=== PATIENT | female | born 1970 | race Caucasian/White ===

== ENCOUNTER 2019-06-23 00:30 | Day surgery (SDC) | payer BC, SELFPAY ==
[2019-06-15 13:22] VITALS: BMI 35.8
[2019-06-23] MEDS: LACTATED RINGERS 1,000 ML 150 ML IV CONT (07:10)
--- NOTE | 2019-06-23 07:22 | WPDANESEPPF ---
Anes - Initial Pre Proc Eval Procedure: Operation Date: 06/23/19 08:00 Proposed Procedures p Screening Colonoscopy - Raymond Hodgson MD Date/Time: 06/23/19 07:22 Surgeon: Raymond Hodgson MD Pre Op Diagnosis: neoplasm screening Patient Data Age: 49 Gender: F Height: 5 ft 8 in Weight: 106.8 kg Allergies Allergy/AdvReac Type Severity Reaction Status Date / Time No Known Allergies Allergy Verified 06/23/19 07:21 Home Medications Medication Instructions Recorded Confirmed Type ai-ew-YV-vit R-lhhia-xhl-coQ10 1 cap PO DAILY 06/15/19 06/15/19 History [Daily Multivitamin] olmesartan 20 mg PO DAILY 06/15/19 06/23/19 History Patient hx anesthesia problems: none Family hx anesthesia problems: none PMFSH Past Medical History Medical History (Updated 06/23/19 @ 07:19 by Vipul Garcia MD) Hypertension Family History Family History (Updated 10/27/16 @ 13:13 by DOCTOR UNKNOWN) Mother Patient's mother is Other Family history of lymphoma Family history of rheumatoid arthritis Social History Social History Smoking status: Never smoker Alcohol intake: current Anes - Eval Final PreProcedure Day of Procedure 06/23/19 07:22 Patient weight: obese Heart: regular rate and rhythm Lungs: clear to auscultation Airway: Mallampati scale class II Neurological: alert and oriented Last oral intake: >/= 8 hours ASA classification: II Emergent: no Anesthetic plan: proceed Anesthesia type and monitoring: general GIVS and standard monitoring Informed Consent: The patient's anesthetic plan and its attendant risks and benefits were discussed with the patient/family/POA. Questions were solicited and answers provided to the satisfaction of the patient/family/POA.
[2019-06-23 07:23] VITALS: BP 137/90; PULSE 100; RESP 16; TEMP 37.1; O2SAT 100; BMI 35.4
--- NOTE | 2019-06-23 08:07 | WPDGICN ---
Assessment and Plan Additional Plan This is a 49-year-old white female patient seen in evaluation at the request of Dr. Alfie Garcia. Patient presents for neoplasia screening. Her current weight appetite bowel movements are normal. . She denies any blood in her stools. Her family history is noncontributory. She denies abdominal pain. Family history noncontributory. Past medical history significant for hypertension. Medications Benicar 20 mg p.o. daily. No known medical allergies. Physical exam reveals her to be alert. Oriented x3. Vital signs stable. HEENT exam unremarkable. Lungs are clear to auscultation and percussion. Heart is without murmur or extra sounds. Abdominal exam bowel sounds are present soft nontender with no hepatosplenomegaly. Digital external rectal exam normal. Impression 1. Neoplasia screening. 2. Hypertension. Plan is for screening colonoscopy. This report follow separately. GI Consult Note Consult date/time: 06/23/19 08:07 HPI: Kinza Willoughby is a 49 year old female [facility] Past Medical History Medical History (Updated 06/23/19 @ 07:19 by Vpiul Garcia MD) Hypertension Family History Family History (Updated 10/27/16 @ 13:13 by DOCTOR UNKNOWN) Mother Patient's mother is Other Family history of lymphoma Family history of rheumatoid arthritis Social History Social History Smoking status: Never smoker Alcohol intake: current Meds Home Medications and Allergies Home Medications Medication Instructions Recorded Confirmed Type mn-eq-FC-vit W-vezhi-hxn-coQ10 1 cap PO DAILY 06/15/19 06/15/19 History [Daily Multivitamin] olmesartan 20 mg PO DAILY 06/15/19 06/23/19 History Allergies Allergy/AdvReac Type Severity Reaction Status Date / Time No Known Allergies Allergy Verified 06/23/19 07:21 Vital Signs Vital Signs - 24 hr 06/23/19 07:23 Temperature 37.1 C Pulse Rate 100 Respiratory Rate 16 Blood Pressure 137/90 Pulse Oximetry 100
[2019-06-23 08:31] VITALS: BP 138/80; PULSE 78; RESP 24; O2SAT 99
[2019-06-23 08:41] VITALS: BP 133/75; PULSE 70; RESP 24; O2SAT 99
[2019-06-23 08:48] VITALS: BP 143/90; PULSE 66; RESP 24; O2SAT 100
== END 2019-06-23 09:09 | disposition home or self-care (01) ==
PROVIDERS: PCP Internal Medicine; Visit Provider Internal Medicine Gastroenterology
PROC: 0DJD8ZZ Inspection of Lower Intestinal Tract, Via Natural or Artificial Opening Endoscopic (ICD-10-PCS; CPT 45378; principal; 2019-06-23 08:00)
DX: Z12.11 Encounter for screening for malignant neoplasm of colon (principal); D12.8 Benign neoplasm of rectum; K64.8 Other hemorrhoids; I10 Essential (primary) hypertension; E66.9 Obesity, unspecified; Z68.35 Body mass index [BMI] 35.0-35.9, adult
CPT/HCPCS: 45385; 88305; J2704; J7120

== ENCOUNTER 2024-08-01 00:17 | Day surgery (SDC) | payer BC, SELFPAY ==
[2024-07-20 14:18] VITALS: BMI 39.9
--- OUTSIDE RECORDS SUMMARY | 2024-08-01 00:20 | XMS_ITS | Referral Summary ---
Author Organization [facility] Address [address] [place] [address] Care Team Providers Care T Rail Turner Name Role Phone Unavailable Primary Care Provider Unavailabl e Source Comments [facility],non-owned Affiliates and Associated Physician Practices is amultiple site organization consisting of ambulatory clinics and hospital sitesin [place], [place], [place]. This disclosure is being madepursuant to the Care Everywhere program and may not contain all information available regarding this patient. Last updated 18.[facility] Social History Tobacco Use Types Packs/Day Years Used Date Smoking Tobacco: Never Assessed Sex and Gender Information Value Date Recorded Sex Assigned at Not on file Gender Identity Not on file Sexual Orientation Not on file Plan of Treatment Not on file
--- OUTSIDE RECORDS SUMMARY | 2024-08-01 00:20 | XMS_ITS | Patient Health Summary ---
Author Organization [facility] Address [address] [place] [address] Care Team Providers Care Loan Secretary Name Role Phone Unavailable Primary Care Provider Unavailabl e Note from [facility],non-owned Affiliates and Associated Physician Practices is amultiple site organization consisting of ambulatory clinics and hospital sitesin [place], [place], [place] and [place]. This disclosure is being madepursuant to the Care Everywhere program and may not contain all information available regarding this patient. Last updated 18.[facility] Social History Tobacco Use Types Packs/Day Years Used Date Smoking Tobacco: Never Assessed Sex and Gender Information Value Date Recorded Sex Assigned at Not on file Gender Identity Not on file Sexual Orientation Not on file Procedures * DERMATOPATHOLOGY(Performed 01/11/2019) * DERMATOPATHOLOGY(Performed 12/13/2018) Results * DERMATOPATHOLOGY (01/11/2019 12:00 AM CDT) Only the most recent of2 resultswithin the time period is included. Case Report Dermatopathology Report Case: [id number] Authorizing Provider: Lore Wasserman MD Collected: 01/11/2019 12:00 AM Ordering Location: [facility] DermPath Lab Received: 01/12/2019 07:16 AM Pathologist: Naveed Navarro MD Specimen: Skin, mid back 9 2:33 PM CDT DERMATOPATHOLOGY LABORATORY Final Diagnosis Specimen A. SKIN, mid back: DERMAL SCAR RESIDUAL BASAL CELL CARCINOMA NOT IDENTIFIED (L90.5) 9 2:33 PM CDT DERMATOPATHOLOGY LABORATORY Clinical History BCC superficial and multifocal biopsy proven. Previous Bx: [id number]. 2:33 PM T DERMATOPATHOLOGY LABORATORY Gross Description Specimen A: Received is one formalin filled container labeled with the patient's name and designated mid back.The specimen consists of an ellipse measuring [id number] and is oriented with the notch at the 12 o'clock position, not labeled on the requisition. The epidermal surface consists of a centrally located 6x6mm previous biopsy site. The 12 to 6 o'clock margin is inked green. The 6 o'clock to 12 o'clock margin is inked black. The 12 o'clock tip is submitted in cassette 1. The 6 o'clock tip is submitted in cassette 2. The remainder of the ellipse is serially sectioned and submitted in cassettes 3-5. Jar 0. 2:33 PM [facility] DERMATOPATHOLOGY LABORATORY Microscopic Description Specimen A. SKIN, mid back: There are fibroblasts and collagen bundles oriented parallel to the skin surface. There are elongated blood vessels, some of which are oriented perpendicular to the skin surface. No basal cell carcinoma is identified. 2:33 PM T DERMATOPATHOLOGY LABORATORY Disclaimer An external and internal positive and negative controls are appropriate for the histochemical, immunohistochemical and immunofluorescence stain(s) in this case (if any), except where stated explicitly. The performance characteristics of the stain(s) cited in this report were developed and its performance characteristic determined by the Dermatopathology Laboratory at [facility], directed by Dr. Raymond Navarro. These tests need not be, and therefore are not, approved by the [place] Food and Drug Administration. The tests are used for clinical purposes. Billing Codes Specimen Charges Stain Charges 25659 1 2:33 PM CDT DERMATOPATHOLOGY LABORATORY Embedded Images 2:33 PM T DERMATOPATHOLOGY LABORATORY Pathology/Cytolog y TISSUE SPECIMEN FROM SKIN / Unknown 01/11/2019 01/12/2019 7:16 AM CDT Lore Wasserman MD LAB - PATHOLOGY/CYTO LOGY ORDERABLES DERMATOPATHOLOGY LABORATORY [facility] - Department of Dermatology [address] [place] [address], 5th Floor Lab [address] [phone]
--- OUTSIDE RECORDS SUMMARY | 2024-08-01 00:20 | XMS_ITS | Clinical Summary ---
Author Organization [facility] Address [address] [place] [address] Care Team Providers Care Clerical Investigator Name Role Phone Unavailable Primary Care Provider Unavailabl e Source Comments [facility],non-owned Affiliates and Associated Physician Practices is amultiple site organization consisting of ambulatory clinics and hospital sitesin [place], [place], [place] and [place]. This disclosure is being madepursuant to the Care Everywhere program and may not contain all information available regarding this patient. Last updated 18.[facility] [employer] Social History Tobacco Use Types Packs/Day Years Used Date Smoking Tobacco: Never Assessed Sex and Gender Information Value Date Recorded Sex Assigned at Not on file Gender Identity Not on file Sexual Orientation Not on file Plan of Treatment Health Maintenance Due Date Last Done Comments COLOGUARD (AGES 45-75) - COL ON CA SCREENING 1968 COLON MONITORING 1968 COLONOSCOPY - COLON CA SCREENING 1968 CT COLONOGRAPHY - COLON CA SCREENING 1968 Colorectal Cancer Screening 1968 FIT - COLON CA SCREENING 1968 FLEX SIG - COLON CA SCREENING 1968 LIPID TESTING 1968 MAMMOGRAM 1968 PAP SMEAR 1968 HIV SCREENING 01/18/1983 HEPATITIS C SCREENING 01/14/1986 DTAP/TDAP/TD VACCINES (1 - Tdap) 01/18/1987 HEPATITIS B VACCINE (1 of 3 - 19+ 3-dose series) 01/18/1987 PNEUMOCOCCAL VACCINE 50+ (1 of 1 - PCV) 01/18/2018 ZOSTER VACCINE (1 of 2) 01/18/2018 COVID-19 VACCINE ( - 2023-2 5 season) 2024 INFLUENZA VACCINE (#1) 2024 DEPRESSION SCREENING 05/17/2024 HIB VACCINE Aged Out No longer eligi ble based on patient's age to complete this topic HPV VACCINE Aged Out No longer eligi ble based on patient's age to complete this topic MENINGOCOCCAL (Group B) VACC INE SHARED DECISION-MAKING Aged Out No longer eligibl e based on patient's age to complete this topic MENINGOCOCCAL GROUPS A/C/Y/W VACCINE Aged Out No longer eligible b ased on patient's age to complete this topic PNEUMOCOCCAL VACCINE Aged Out No long er eligible based on patient's age to complete this topic
--- OUTSIDE RECORDS SUMMARY | 2024-08-01 00:20 | XMS_ITS | Encounter Summary ---
Author Organization [facility] Address [address] [place] [address] Care Team Providers Care Electrical Sign Servicer Name Role Phone Unavailable Primary Care Provider Unavailabl e Encounter Details Date Type Department Care Team (Late st Contact Info) Description 01/12/2019 Lab Requisition [facility] DermPath Lab [address] [facility] [place] [address] Lore Wasserman MD [address] [place] [address] Social History Tobacco Use Types Packs/Day Years Used Date Smoking Tobacco: Never Assessed Sex and Gender Information Value Date Recorded Sex Assigned at Not on file Gender Identity Not on file Sexual Orientation Not on file documented as of this encounter Plan of Treatment Not on file documented as of this encounter Procedures Procedure Name Priority Date/Time Associated Diagnosis Comments DERMATOPATHOLOGY Routine 01/11/2019 12:0 0 AM CDT documented in this encounter Results * DERMATOPATHOLOGY (01/11/2019 12:00 AM CDT) Case Report Dermatopathology Report Case: [id number] Authorizing Provider: Lore Wasserman MD Collected: 01/11/2019 12:00 AM Ordering Location: [facility] DermPath Lab Received: 01/12/2019 07:16 AM Pathologist: Naveed Navarro MD Specimen: Skin, mid back 9 2:33 PM CDT DERMATOPATHOLOGY LABORATORY Final Diagnosis Specimen A. SKIN, mid back: DERMAL SCAR RESIDUAL BASAL CELL CARCINOMA NOT IDENTIFIED (L90.5) 9 2:33 PM CDT DERMATOPATHOLOGY LABORATORY Clinical History BCC superficial and multifocal biopsy proven. Previous Bx: [id number]. 2:33 PM CDT DERMATOPATHOLOGY LABORATORY Gross Description Specimen A: Received is one formalin filled container labeled with the patient's name and designated mid back.The specimen consists of an ellipse measuring [id number] and is oriented with the notch at [...] in cassettes 3-5. Jar 0. 2:33 PM CDT DERMATOPATHOLOGY LABORATORY Microscopic Description Specimen A. SKIN, [...] characteristic determined by the Dermatopathology Laboratory at [facility], directed by Dr. Raymond Navarro. These tests need not be, and therefore are not, approved by the [place] Food and Drug Administration. The tests are used for clinical purposes. Billing Codes Specimen Charges Stain Charges 25492 1 2:33 PM CDT DERMATOPATHOLOGY LABORATORY Embedded Images 2:33 PM CDT DERMATOPATHOLOGY LABORATORY Pathology/Cytolog y TISSUE SPECIMEN FROM SKIN / Unknown 01/11/2019 01/12/2019 7:16 AM CDT Lore Wasserman MD LAB - PATHOLOGY/CYTO LOGY ORDERABLES DERMATOPATHOLOGY LABORATORY [facility] - Department of Dermatology [address] [place] [address], 5th Floor Lab B [address] [phone] documented in this encounter Visit Diagnoses Not on filedocumented in this encounter
--- OUTSIDE RECORDS SUMMARY | 2024-08-01 00:20 | XMS_ITS | Encounter Summary ---
Author Organization [facility] Address [address] [place] [address] Care Team Providers Care Grid Casting Machine Operator Helper Name Role Phone Unavailable Primary Care Provider Unavailabl e Encounter Details Date Type Department Care Team (Late st Contact Info) Description 12/14/2018 Lab Requisition [facility] Care DermPath Lab [address] [facility] [place] [address] Lore Wasserman MD [address] [facility] [address] [place] [address] Social History Tobacco Use Types Packs/Day Years Used Date Smoking Tobacco: Never Assessed Sex and Gender Information Value Date Recorded Sex Assigned at Not on file Gender Identity Not on file Sexual Orientation Not on file documented as of this encounter Plan of Treatment Not on file documented as of this encounter Procedures Procedure Name Priority Date/Time Associated Diagnosis Comments DERMATOPATHOLOGY Routine 12/13/2018 12:0 0 AM CDT documented in this encounter Results * DERMATOPATHOLOGY (12/13/2018 12:00 AM CDT) Case Report Dermatopathology Report Case: [id number] Authorizing Provider: Lore Wasserman MD Collected: 12/13/2018 12:00 AM Pathologist: Naveed Navarro MD Received: 12/14/2018 12:40 PM Specimen: Skin, mid back 9 5:15 PM CDT DERMATOPATHOLOGY LABORATORY Final Diagnosis Specimen A. SKIN, mid back: BASAL CELL CARCINOMA, SUPERFICIAL MULTIFOCAL (C44.519) 9 5:15 PM CDT DERMATOPATHOLOGY LABORATORY Clinical History BCC, LPLK, pink papule. 9 5:15 PM CDT DERMATOPATHOLOGY LABORATORY Gross Description Specimen A: Received is one formalin filled container labeled with the patient's name and designated mid back. The specimen consists of a shave measuring [id number]. Jar 0. 5:15 PM T DERMATOPATHOLOGY LABORATORY Microscopic Description Specimen A. SKIN, mid back: Attached to the undersurface of the epidermis, there are small aggregates of basaloid cells with a high nuclear to cytoplasmic ratio and peripheral palisading. 5:15 PM CDT DERMATOPATHOLOGY LABORATORY Disclaimer An external and internal positive and negative controls are appropriate for the histochemical, immunohistochemical and immunofluorescence stain(s) in this case (if any), except where stated explicitly. The performance characteristics of the stain(s) cited in this report were developed and its performance characteristic determined by the Dermatopathology Laboratory at [facility], directed by Dr. Raymond Navarro. These tests need not be, and therefore are not, approved by the [place] Food and Drug Administration. The tests are used for clinical purposes. Billing Codes Specimen Charges Stain Charges 30057 1 5:15 PM CDT DERMATOPATHOLOGY LABORATORY Embedded Images 5:15 PM CDT DERMATOPATHOLOGY LABORATORY Pathology/Cytolog y TISSUE SPECIMEN FROM SKIN / Unknown 12/13/2018 12/14/2018 12:40 PM CDT Lore Wasserman MD LAB - PATHOLOGY/CYTO LOGY ORDERABLES DERMATOPATHOLOGY LABORATORY [facility] - Department of Dermatology [address] [place] [address] [address] [place], [place] [address] [phone] documented in this encounter Visit Diagnoses Not on filedocumented in this encounter
--- OUTSIDE RECORDS SUMMARY | 2024-08-01 00:20 | XMS_ITS | Clinical Summary ---
Author Organization [facility] Address [address] [place] [address] Care Team Providers Care Family Services Specialist Name Role Phone Lou Eisenberg Primary Care Provider [phone] Allergies Active Allergy Reactions Criticality Noted Date Comments Shrimp Extract Anaphylaxis High 04/29/2024 Medications olmesartan (BENICAR) 20 MG tablet Take 1 tablet (20 mg total) by mouth daily. 4 Active progesterone (PROMETRIUM) 100 MG capsule Take 1 capsule (100 mg total) by mouth nightly at bedtime. 4 Active estradiol (CLIMARA) 0.0375 MG/24HR APPLY 1 PATCH TOPICALLY TO DRY SKIN ONCE A WEEK 4 Active Encounters Date Type Department Care Team Description 06/28/2024 8:22 AM REIMBURSEMENT COUNSELOR - 06/28/2024 11:59 PM [facility] Hospital Encounter [facility] Mammography [address] [place] [address] Tasha Hernandez MD Discharge Disposition: Home or Self Care (Routine Discharge) 06/28/2024 Travel from Last 3 Months Family History Medical History Relation Comments Breast Cancer Maternal Aunt 1 Breast Cancer Maternal Aunt 2 Relation Status Comments Maternal Aunt 1 Alive Maternal Aunt 2 Alive Social History Tobacco Use Types Packs/Day Years Used Date Smoking Tobacco: Never Passive Smoke Exposure: Never Smokeless Tobacco: Never Tobacco Cessation:Counseling Given: No Alcohol Use Standard Drinks/Week Comments Yes 0 (1 standard drink = 0.6 oz pur e alcohol) socially Comments No Sex and Gender Information Value Date Recorded Sex Assigned at Not on file Legal Sex Female 6:37 PM CDT Gender Identity Not on file Sexual Orientation Not on file Last Filed Vital Signs Vital Sign Reading Time Taken Comments Blood Pressure 122/67 04/29/2024 9:18 AM REIMBURSEMENT COUNSELOR Pulse 77 04/29/2024 9:18 AM REIMBURSEMENT COUNSELOR Temperature 36.2 C (97.1 F) 04/29/2024 9:18 AM REIMBURSEMENT COUNSELOR Respiratory Rate 18 04/29/2024 9:18 AM REIMBURSEMENT COUNSELOR Oxygen Saturation 97% 04/29/2024 9:18 AM REIMBURSEMENT COUNSELOR Inhaled Oxygen Concentration - - Weight 118.2 kg (260 lb 9.6 oz) 04/29/2024 9:18 AM REIMBURSEMENT COUNSELOR Height 172.7 cm (5' 8 ) 04/29/2024 9:18 AM REIMBURSEMENT COUNSELOR Body Mass Index 39.62 04/29/2024 9:18 AM REIMBURSEMENT COUNSELOR Plan of Treatment Health Maintenance Due Date Last Done Comments Cervical Cancer Screening Pap Smear (Age 30 to 64) Every 3 Years 1968 Colorectal Cancer Screening Colonoscopy (10 Years) 1968 Annual Physical 01/18/1971 Hepatitis C 01/18/1986 DTaP, Tdap and Td Vaccines (1 - Tdap) 01/18/1987 Hepatitis B Vaccines (1 of 3 - 19+ 3-dose series) 01/18/1987 Cervical Cancer Screening Pap with HPV Testing (Age 30 to 64) Every 5 Years 01/18/1998 Cervical Cancer Screening with HPV 01/18/1998 COVID-19 Vaccine ( season) 2024 Influenza Adult (#1) 2024 PHQ-2 (Physician [place]) 05/17/2024 Mammogram Screening 06/28/2026 06/28/2024, 01/03/2024, 06/25/2023, Additional history exists Zoster Vaccines Completed 11/16/2019, 06/13/2019 Meningococcal B Vaccine Aged Out No l onger eligible based on patient's age to complete this topic Meningococcal Vaccine Aged Out No erica malcolm eligible based on patient's age to complete this topic Pneumococcal Vaccine: Pediatrics (0 to 5 Years) and At-Risk Patients (6 to 64 Years) Aged Out No longer eligible based on patient's age to complete this topic RSV Immunizations Under 20 Months Aged Out No longer eligible based on patient's age to complete this topic Procedures Procedure Name Priority Date/Time Associated Diagnosis Comments MG SCREENING W MINOR MURIEL DIGI Routine 06/28/2024 9:56 AM REIMBURSEMENT COUNSELOR Encounter for screening mammogram for malignant neoplasm of breast from Last 3 Months Results * MG SCREENING W MINOR MURIEL DIGI (06/28/2024 9:56 AM REIMBURSEMENT COUNSELOR) Anatomical Region Laterality Modality Breast Bilateral Mammography 06/28/2024 10:4 5 AM REIMBURSEMENT COUNSELOR Impressions 06/28/2024 10:46 AM REIMBURSEMENT COUNSELOR IMPRESSION: No suspicious change since the previous exams. Recommendation: 1: Routine Screening Bilateral in 1 Year Assessment: ACR BI-RADS 2 - BENIGN FINDING(S) Ordered By: TASHA HERNANDEZ Interpreted By: Cristhian Castañeda MD, 06/28/2024 10:45 AM Narrative 06/28/2024 10:46 AM REIMBURSEMENT COUNSELOR [facility] [address] [place], [place] [id number] Examination: Digital screening mammogram with CAD. Clinical history: Asymptomatic patient presents for routine screening. Comparison: 06/25/2023, 02/10/2022, 02/04/2021, 01/26/2020. Technique: Bilateral digital mammograms. The exam was interpreted with the use of a computer-aided detection (CAD) system. Additional 3-D tomosynthesis images were acquired. Tissue density: There are scattered areas of fibroglandular density. Findings: The breast tissue contains scattered fibroglandular densities. Benign-appearing calcification noted. No suspicious mass, microcalcification or area of architectural distortion can be identified. From a mammographic standpoint, routine followup in one year would seem adequate. us Tasha Hernandez MD MAMMO Final Resul t from Last 3 Months Insurance BLUE CROSS BLUE SHIELD Care Teams Family Services Specialist Relationship Specialty Start Date End Date Lou Eisenberg PA [address] [place] [id number] PCP - General PHYSICIAN VIDEO PRESENTATION OPERATOR 01/03/24
[2024-08-01 09:23] VITALS: BP 133/75; PULSE 57; RESP 18; TEMP 36.1; O2SAT 97
[2024-08-01] MEDS: LACTATED RINGERS 1,000 ML 150 ML IV CONT (09:31)
--- NOTE | 2024-08-01 09:44 | P.PNAN_ITS ---
Anes - Initial Pre Proc Eval Procedure: Operation Date: 08/01/24 10:30 Proposed Procedures p Screening Colonoscopy - Dakota Bueno MD Date/Time: 08/01/24 09:44 Surgeon: Dakota Bueno MD Pre Op Diagnosis: screening colon Patient Data Age: 54 Gender: F Height: 1.73 m Weight: 115.9 kg Last Vital Signs Temp 36.1 C L 08/01/24 09:23 Pulse 57 L 08/01/24 09:23 Resp 18 08/01/24 09:23 BP 133/75 08/01/24 09:23 Pulse Ox 97 08/01/24 09:23 O2 Del Method Room Air 08/01/24 09:23 Allergies Allergy/AdvReac Type Severity Reaction Status Date / Time shrimp AdvReac Mild Swelling Verified 08/01/24 09:22 Home Medications ?Medication ?Instructions ?Recorded ?Confirmed ?Type [id number] 200 mcg-vit K 100 1 cap PO DAILY 06/15/19 08/01/24 History mcg-lycop 500 [id number] capsule (Daily Multivitamin) cetirizine 10 mg tablet (Zyrtec) 10 mg PO DAILY PRN allergy symptoms 02/24/22 08/01/24 History estradiol 0.5 mg tablet 0.5 mg PO DAILY 02/24/22 08/01/24 History progesterone micronized 100 mg 100 mg PO QAM 02/24/22 08/01/24 History capsule olmesartan 20 mg tablet 20 mg PO DAILY #90 tabs 05/01/24 08/01/24 Rx Patient hx anesthesia problems: none Family hx anesthesia problems: none Results Review: All pre-operative results and documents have been reviewed as part of the pre- operative evaluation. [facility] Past Medical History Medical History Dyslipidemia Diabetes Elevated fasting glucose Screening for thyroid disorder Screening cholesterol level Annual physical exam FH: factor V Leiden mutation Hypertension Surgical History Surgical History History of colonoscopy 06/23/19 Dr. Hodgson repeat 5 years Family History Family History Mother Patient's mother is Pancreatic cancer Non Hodgkin's lymphoma Sibling Chronic rheumatic arthritis Other Family history of lymphoma Social History Social History Smoking status: Never smoker Alcohol intake: never Substance use: never Do You Feel Safe in your Home?: Yes Lack of Transportation: No Lack of Food: Never True Current Housing: I Have Housing Concerned About Future Housing: No Difficulty Paying Gas/Electric Bills: No Difficulty Paying for Meds: No Currently Unemployed: No Education: Don't Know Difficulty w/ Childcare or Family Care: No Living arrangements: with family Occupation/Education: occupation 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 care concerns: No Agree to blood products: Yes Anes - Eval Final PreProcedure Day of Procedure 08/01/24 09:44 Patient weight: obese Heart: regular rate and rhythm Lungs: clear to auscultation Airway: Mallampati scale class II Neurological: alert and oriented Last oral intake: >/= 8 hours ASA classification: II Emergent: no Anesthetic plan: proceed Anesthesia type and monitoring: general GIVS and standard monitoring Results Review: All pre-operative results and documents have been reviewed as part of the pre- operative evaluation. Informed Consent: The patient's anesthetic plan and its attendant risks and benefits were discussed with the patient/family/POA. Questions were solicited and answers provided to the satisfaction of the patient/family/POA.
--- NOTE | 2024-08-01 10:01 | PM.HPGS ---
History of Present Illness History of Present Illness Consent: Risks, benefits, and alternatives have been discussed and questions answered. Patient agrees to proceed with procedure. Chief complaint: screening colon Narrative: Kinza Willoughby is a 54 year old female with colon polyp in 2019 Review of Systems Review of Systems: All systems reviewed & are unremarkable except as noted in HPI and below PMFSH Past Medical History Medical History (Updated 08/01/24 @ 10:02 by Dakota Bueno MD) Colon polyp Dyslipidemia Diabetes Elevated fasting glucose Screening for thyroid disorder Screening cholesterol level Annual physical exam FH: factor V Leiden mutation Hypertension Surgical History Surgical History History of colonoscopy 06/23/19 Dr. Hodgson repeat 5 years Family History Family History Mother Patient's mother is Pancreatic cancer Non Hodgkin's lymphoma Sibling Chronic rheumatic arthritis Other Family history of lymphoma Social History Social History Smoking status: Never smoker Alcohol intake: never Substance use: never Do You Feel Safe in your Home?: Yes Lack of Transportation: No Lack of Food: Never True Current Housing: I Have Housing Concerned About Future Housing: No Difficulty Paying Gas/Electric Bills: No Difficulty Paying for Meds: No Currently Unemployed: No Education: Don't Know Difficulty w/ Childcare or Family Care: No Living arrangements: with family Occupation/Education: occupation 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 care concerns: No Agree to blood products: Yes Meds Home Medications and Allergies Home Medications ?Medication ?Instructions ?Recorded ?Confirmed ?Type [id number] 200 mcg-vit K 100 1 cap PO DAILY 06/15/19 08/01/24 History mcg-lycop 500 [id number] capsule (Daily Multivitamin) cetirizine 10 mg tablet (Zyrtec) 10 mg PO DAILY PRN allergy symptoms 02/24/22 08/01/24 History estradiol 0.5 mg tablet 0.5 mg PO DAILY 02/24/22 08/01/24 History progesterone micronized 100 mg 100 mg PO QAM 02/24/22 08/01/24 History capsule olmesartan 20 mg tablet 20 mg PO DAILY #90 tabs 05/01/24 08/01/24 Rx Allergies Allergy/AdvReac Type Severity Reaction Status Date / Time shrimp AdvReac Mild Swelling Verified 08/01/24 09:22 Vital Signs Vital Signs - 24 hr 08/01/24 09:23 Temperature 96.9 F L Pulse Rate 57 L Respiratory Rate 18 Blood Pressure 133/75 Pulse Oximetry 97 Oxygen Delivery Room Air Exam Const: General: comfortable and no acute distress HENMT: Face/Nose/Sinus: Normal nares present Eyes: General: appearance normal, both eyes and all related structures Neck: Neck: no JVD Resp: Auscultation: clear to auscultation bilaterally Cardio: Rate: regular rate Rhythm: regular rhythm GI: Inspection: non-distended GI Palp: Yes Soft to palpation Skin: General skin exam: normal color Neuro: General: gait normal Speech: normal speech Extrem: General: normal to inspection Psych: Mental Status: mental status grossly normal Assessment and Plan Assessment and plan (1) Colon polyp: Code(s): K63.5 - Polyp of colon Status: Acute Assessment and Plan: colonoscopy
[2024-08-01 10:18] VITALS: BP 135/72; PULSE 57; RESP 17; O2SAT 100
[2024-08-01 10:28] VITALS: BP 119/72; PULSE 56; RESP 15; O2SAT 100
[2024-08-01 10:38] VITALS: BP 132/75; PULSE 58; RESP 22; O2SAT 100
== END 2024-08-01 10:42 | disposition home or self-care (01) ==
PROVIDERS: PCP Physician Assistant Medical; Referring Provider Physician Assistant Medical; Visit Provider Internal Medicine Gastroenterology
PROC: 0DJD8ZZ Inspection of Lower Intestinal Tract, Via Natural or Artificial Opening Endoscopic (ICD-10-PCS; CPT 45378; principal; 2024-08-01 10:30)
DX: Z12.11 Encounter for screening for malignant neoplasm of colon (principal); K57.30 Diverticulosis of large intestine without perforation or abscess without bleeding; K64.8 Other hemorrhoids; E66.9 Obesity, unspecified; Z68.38 Body mass index [BMI] 38.0-38.9, adult
CPT/HCPCS: 45378; J2704; J7120